=== PATIENT | male | born 1975 | race Two or more races ===

== ENCOUNTER 2019-04-16 09:51 | Emergency (ER) | payer OTHER ==
[~2019-04-16] VITALS: Ht 152.4 cm; Wt 57.2 kg
[2019-04-16 09:53] VITALS: Ht 152.4 cm; Wt 57.2 kg
[2019-04-16 13:00] VITALS: BP 110/64
== END 2019-04-16 13:00 | disposition home or self-care (01) ==
LOC: ED 09:51
DX: S01.01XA Laceration without foreign body of scalp, initial encounter (principal); W11.XXXA Fall on and from ladder, initial encounter; Y93.9 Activity, unspecified; Y92.89 Other specified places as the place of occurrence of the external cause; Y99.0 Civilian activity done for income or pay
CPT/HCPCS: 90714; J2001